=== PATIENT | male | born 1970 | race Caucasian/White ===

== ENCOUNTER 2023-05-21 16:29 | Emergency (ER) | payer OTHER ==
[2023-05-21 16:40] VITALS: BP 165/110; PULSE 69; RESP 18; TEMP 97; O2SAT 99
--- NOTE | 2023-05-21 16:47 | ERPHSYRPT ---
- History of Present Illness Time Seen by Provider: 05/21/23 16:47 Source: patient, family Exam Limitations: no limitations Allergies/Adverse Reactions: No Known Drug Allergies Allergy (Unverified 05/21/23 16:39) Home Medications: No Reportable Medications [No Reported Medications] 05/21/23 [History] - Past Medical History Pertinent Past Medical History: No - Past Surgical History Past Surgical History: No - Social History Drug Use: none - Nursing Vital Signs Nursing Vital Signs: Initial Vital Signs Temperature 97.0 F 05/21/23 16:40 Pulse Rate 69 05/21/23 16:40 Respiratory Rate 18 05/21/23 16:40 Blood Pressure 165/110 05/21/23 16:40 O2 Sat by Pulse Oximetry 99 05/21/23 16:40 Pain Scale Pain Intensity 10 - Physical Exam SpO2: 99 - Departure Referrals: PIERRE BARNHART [Primary Care Provider] - Follow up/PCP as directed
== END 2023-05-21 17:13 | disposition left against medical advice (07) ==
LOC: ED 16:29
DX: R22.41 Localized swelling, mass and lump, right lower limb (principal)
CPT/HCPCS: 99281; G0463